=== PATIENT | female | born 1990 | race Caucasian/White ===

== ENCOUNTER 2017-06-01 13:07 | Emergency (ER) | END 2017-06-01 17:52 | disposition home or self-care (01) ==

== ENCOUNTER 2017-06-26 18:30 | Emergency (ER) | END 2017-06-26 19:30 | disposition home or self-care (01) ==

== ENCOUNTER 2017-07-24 10:14 | Emergency (ER) | END 2017-07-24 10:40 | disposition home or self-care (01) ==

== ENCOUNTER 2017-07-31 10:44 | Emergency (ER) | END 2017-07-31 11:00 | disposition home or self-care (01) ==